=== PATIENT | male | born 1965 | race Caucasian/White ===

== ENCOUNTER 2016-08-13 13:11 | Emergency (ER) | payer OTHER ==
[~2016-08-13] VITALS: Ht 182.9 cm; Wt 78.8 kg
[2016-08-13] MEDS ORDERED: NAPROXEN500 MG PO (15:47)
[2016-08-13] MEDS ORDERED: FLEXERIL10 MG PO (15:47)
[2016-08-13 16:17] VITALS: BP 108/73
== END 2016-08-13 16:19 | disposition home or self-care (01) ==
LOC: EME 13:11
DX: S39.012A Strain of muscle, fascia and tendon of lower back, initial encounter (principal); M54.2 Cervicalgia; M79.606 Pain in leg, unspecified; R51 Headache; V47.9XXA Unspecified car occupant injured in collision with fixed or stationary object in traffic accident, initial encounter; F17.200 Nicotine dependence, unspecified, uncomplicated
CPT/HCPCS: 70450; 72070; 72100; 72125; 99281; 99283; J1885